=== PATIENT | male | born 1940 | race Caucasian/White ===

== ENCOUNTER 2016-07-16 02:43 | Observation (INO) | payer MEDICARE, BC ==
[2016-07-16] MEDS ORDERED: Morphine INJ* 2 MG/ML 1 ML SYRINGE IV ONE ×2 (03:00→04:54)
[2016-07-16] MEDS ORDERED: NS 0.9% 1000 ML* 1,000 ML IV ONE (03:00)
[2016-07-16] MEDS ORDERED: Ondansetron INJ* 2 MG/ML VIAL IV ONE (03:00)
--- NOTE | 2016-07-16 03:11 | ED ---
Dalia Srivastava Anna, scribed for Bud Trinidad MD on 07/16/16 at 0310 . Abdominal Pain/Male - HPI Summary HPI Summary: Patient is a 75 y/o male coming to [facility] presenting with the sudden onset of constant abdominal pain that began at 0000 this morning. He reports diffuse pain that is most sensitive in the RLQ. The pain is described as severity 3/10 and radiates to his right flank. Pt denies history of appendicitis. He denies nausea. He has not tried any pain medications yet. - History of Current Complaint Stated Complaint: ABD PAIN Hx Obtained From: Patient, Family/Steel [employer] - Accompanied by Onset/Duration: Sudden Onset, Lasting Hours, Still Present Timing: Constant, Lasting Hours Severity Initially: Moderate Severity Currently: Moderate Pain Intensity: 3 Pain Scale Used: 0-10 Numeric Radiates: Yes Radiates to: Flank - right Associated Signs And Symptoms: Negative: Nausea - Allergies/Home Medications Allergies/Adverse Reactions: Allergies Allergy/AdvReac Type Severity Reaction Status Date / Time No Known Allergies Allergy Verified 07/16/16 03:00 Home Medications: Home Medications Dutasteride [Avodart] 0.5 mg PO DAILY 07/16/16 [History Confirmed 07/16/16] Tamsulosin HCl [Flomax] 0.4 mg PO DAILY 07/16/16 [History Confirmed 07/16/16] PMH/Surg Hx/FS Hx/Imm Hx Endocrine/Hematology History: Denies: Hx Diabetes Cardiovascular History: Reports: Hx Angina Denies: Hx Congestive Heart Failure, Hx Hypertension, Hx Pacemaker/ICD Respiratory History: Denies: Hx Asthma, Hx Chronic Obstructive Pulmonary Disease (COPD) History: Reports: Hx Benign Prostatic Hyperplasia, Other Problems/ Disorders - BPH Denies: Hx Renal Disease Musculoskeletal History: Reports: Hx Back Problems Sensory History: Reports: Hx Cataracts - BILAT, Hx Contacts or Glasses Denies: Hx Hearing Aid Opthamlomology History: Reports: Hx Cataracts - BILAT, Hx Contacts or Glasses Psychiatric History: Denies: Hx Panic Disorder - Surgical History Surgery Procedure, Year, and Place: OPEN [facility] 2013. EYE SURGERY 50 YRS AGO Hx Anesthesia Reactions: No - Immunization History Date of Tetanus Vaccine: UNSURE Date of Influenza Vaccine: 2012 Infectious Disease History: Denies: Traveled Outside the [place] in Last 30 Days - Family History Known Family History: Negative: Cardiac Disease - Social History Alcohol Use: Weekly Alcohol Amount: 2-3/WEEK Substance Use Type: Reports: None Smoking Status (MU): Former Smoker Review of Systems Positive: Abdominal Pain. Negative: Nausea Psychological: Normal All Other Systems Reviewed And Are Negative: Yes Physical Exam Triage Information Reviewed: Yes Vital Signs On Initial Exam: Initial Vitals Temp Pulse Resp BP Pulse Ox 99 F 64 16 184/74 96 07/16/16 03:03 07/16/16 03:03 07/16/16 03:03 07/16/16 03:03 07/16/16 03:03 Vital Signs Reviewed: Yes Appearance: Positive: Well-Appearing, Pain Distress - mild discomfort Skin: Positive: Warm Head/Face: Positive: Normal Head/Face Inspection Eyes: Positive: NORTH ENT: Positive: Hearing grossly normal Neck: Positive: Supple Respiratory/Lung Sounds: Positive: Clear to Auscultation, Breath Sounds Present Cardiovascular: Positive: RRR Abdomen Description: Positive: No Organomegaly, Soft, McBurney's Point Tenderness - mild. Negative: CVA Tenderness (R), CVA Tenderness (L), Distended , Guarding Bowel Sounds: Positive: Present Musculoskeletal: Positive: Strength/ROM Intact Neurological: Positive: Alert, Oriented to Person Place, Time Diagnostics - Vital Signs Vital Signs Temp Pulse Resp BP Pulse Ox 07/16/16 03:03 99 F 64 16 184/74 96 - Laboratory Result Diagrams: 07/16/16 03:10 07/16/16 03:10 Lab Statement: Any lab studies that have been ordered have been reviewed, and results considered in the medical decision making process. - CT CT abd/pel CT Interpretation: Positive (See Comments) CT Interpretation Completed By: Radiologist Re-Evaluation - Re-Evaluation First Eval Re-Evaluation Time: 05:49 Comment: Discussed results and plan of care with patient and family. Patient and family are agreeable with plan. Abdominal Pain Fem Course/Dx - Course Assessment/Plan: Patient is a 75 y/o male coming to [facility] presenting with the sudden onset of constant abdominal pain that began at 0000 this morning. He reports diffuse pain that is most sensitive in the RLQ. The pain is described as severity 3/10 and radiates to his right flank. Pt denies history of appendicitis. He denies nausea. He has not tried any pain medications yet. Patient was given Zofran and Morphine in the ED course. Labs reveal BUN/ Creatinine ratio of 23.1 and c-reactive protein of 19.74. CT reveals acute appendicitis. Discussed care of patient with Dr. Guaman (surgeon) at 0550. Agrees to see and admit patient. - Diagnoses Provider Diagnoses: Acute appendicitis - Provider Notifications Discussed Care Of Patient With: Dr. Guaman (surgeon) at 0550. Agrees to see patient. Instructed by Provider To: Admit As Inpatient Discharge - Discharge Plan Condition: Good Disposition: ADMITTED TO [facility] documentation as recorded by the Dalia van Anna accurately reflects the service I personally performed and the decisions made by , Bud Trinidad MD.
[2016-07-16 03:25] LABS: Add Diff/Slide Review? Slide Review Added; Comments Flag Yes; Hematocrit 46 % (42-52); Hemoglobin 15.7 g/dl (14.0-18.0); Mean Corpuscular HGB Conc 34 g/dl (31-36); Mean Corpuscular Hemoglobin 31 pg (27-31); Mean Corpuscular Volume 92 fL (80-94); Mean Platelet Volume 8 um3 (7.4-10.4); Red Blood Count 5.04 10^6/ul (4.0-5.4); Red Cell Distribution Width 13 % (10.5-15); White Blood Count 9.5 10^3/ul (3.5-10.8)
[2016-07-16 03:37] LABS: Albumin 4.2 g/dL (3.2-5.2); BUN/Creatinine Ratio 23.1 (8-20); C Reactive Protein 19.74 mg/L (< 5.00); Calcium 9.1 mg/dL (8.6-10.3); EGFR Non-African American 81.7 (>60); Globulin 2.8 g/dL (2-4); Total Bilirubin 0.4 mg/dL (0.2-1.0)
[2016-07-16] MEDS ORDERED: Iohexol 300* (CONTRAST) 10 ML SDV IV ONE (04:20)
[2016-07-16 05:53] LABS: Urine Bilirubin Negative (Negative); Urine Glucose Negative (Negative); Urine Nitrite Negative (Negative)
--- NOTE | 2016-07-16 06:18 | RAD ---
INDICATION: Right lower quadrant pain COMPARISON: CT abdomen pelvis August 29, 2013 TECHNIQUE: Axial source images were obtained from the hemidiaphragms to the symphysis pubis following administration of oral and intravenous contrast. 100 mL Omnipaque 300 was utilized. Coronal and sagittal reconstructed images were acquired. Lung bases: The lung bases are clear. Liver: The liver is normal in size. There are no masses. There is no ductal dilatation. Gallbladder: Cholecystectomy. Spleen: The spleen is normal in size. There are no masses. Pancreas: There is no focal pancreatic mass or ductal dilatation. Adrenal glands: There is no evidence of adrenal mass. Kidneys: 1.4 cm lower pole right renal cyst 0.4 cm lower pole right renal cyst. 0.4 cm upper pole right renal. No other focal renal findings. Prompt perfusion and excretion. No CT evidence of nephrolithiasis identified on contrast-enhanced imaging Adenopathy: There is no evidence of adenopathy by size criteria. Fluid collections: There are no free or localized fluid collections. Vessels:There are no significant atherosclerotic changes involving the aorta. There is no focal aneurysm. The iliac vessels are normal in caliber. The IVC appears normal. GI tract: There are no acute CT bowel findings. There is no obstruction. The stomach and small bowel appear normal. The appendix is dilated and fluid-filled with an appendicolith and mild periappendiceal inflammatory change. The CT findings are consistent with acute appendicitis. The remainder the large bowel is normal. There are no findings of obstruction or perforation. Pelvic organs: The prostate and seminal vesicles appear normal Bladder: There are no bladder masses. Abdominal and pelvic soft tissues: The extraperitoneal abdominal and pelvic soft tissues appear normal.. Osseous structures: There are no acute osseous findings. Other: None IMPRESSION: CT FINDINGS OF ACUTE APPENDICITIS.
--- NOTE | 2016-07-16 07:25 | HP ---
H&P (Free Text) History and Physical: Surgery H & P Asked by Dr. Trinidad to evaluate a pt with abdominal pain and a CT suggestive of appendicitis. Mr. Cruz is a 75 y.o. male who reports he first noticed "discomfort" in the low abdomen yesterday. The sensation worsened over the next few hours till he realized he "couldn't get comfortable" and he needed to come to the ER. He denies fever, nausea, diarrhea, constipation, or dysuria. He had an episode of chills when he got to the ER. PMHx: denies PSHx: cholecystectomy associated with ruptured duodenum and prolonged hospitalization. Meds: avodart and flomax ROS: BPH SH: neg. Tob., occ EtOH, neg. IVDA PE: general: WDWN male in NAD Vital Signs 07/16/16 07/16/16 07/16/16 03:03 03:26 05:03 Temperature 99 F Pulse Rate 64 Respiratory 16 16 16 Rate Blood Pressure 184/74 (mmHg) O2 Sat by Pulse 96 Oximetry HEENT: alopecia, neg. cervical adenopathy, neg. scleral icterus, dry oral mucosa. lungs: clear to ausc. heart: reg. abd: good BS,soft, tender with fullness in right lower quadrant, slightly higher than McBurney's point. No guarding or rebound. There are a well-healed upper midline and a well-healed supraumbilical scar. ext: neg. cyanosis, edema, easily palp. pedal pulses. Laboratory Last Values WBC 9.5 10^3/ul (3.5-10.8) 07/16/16 03:10 RBC 5.04 10^6/ul (4.0-5.4) 07/16/16 03:10 Hgb 15.7 g/dl (14.0-18.0) 07/16/16 03:10 Hct 46 % (42-52) 07/16/16 03:10 MCV 92 fL (80-94) 07/16/16 03:10 MCH 31 pg (27-31) 07/16/16 03:10 MCHC 34 g/dl (31-36) 07/16/16 03:10 RDW 13 % (10.5-15) 07/16/16 03:10 Plt Count 211 10^3/ul (150-450) 07/16/16 03:10 MPV 8 um3 (7.4-10.4) 07/16/16 03:10 Neut % (Auto) 88.0 % (38-83) H 07/16/16 03:10 Lymph % (Auto) 7.8 % (25-47) L 07/16/16 03:10 [place] % (Auto) 2.7 % (1-9) 07/16/16 03:10 Eos % (Auto) 0.7 % (0-6) 07/16/16 03:10 Baso % (Auto) 0.8 % (0-2) 07/16/16 03:10 Absolute Neuts (auto) 8.4 10^3/ul (1.5-7.7) H 07/16/16 03:10 Absolute Lymphs (auto) 0.7 10^3/ul (1.0-4.8) L 07/16/16 03:10 Absolute Monos (auto) 0.3 10^3/ul (0-0.8) 07/16/16 03:10 Absolute Eos (auto) 0.1 10^3/ul (0-0.6) 07/16/16 03:10 Absolute Basos (auto) 0.1 10^3/ul (0-0.2) 07/16/16 03:10 Absolute Nucleated RBC 0 10^3/ul 07/16/16 03:10 Nucleated RBC % 0 07/16/16 03:10 Sodium 136 mmol/L (133-145) 07/16/16 03:10 Potassium 4.0 mmol/L (3.5-5.0) 07/16/16 03:10 Chloride 102 mmol/L (101-111) 07/16/16 03:10 Carbon Dioxide 26 mmol/L (22-32) 07/16/16 03:10 Anion Gap 8 mmol/L (2-11) 07/16/16 03:10 BUN 21 mg/dL (6-24) 07/16/16 03:10 Creatinine 0.91 mg/dL (0.67-1.17) 07/16/16 03:10 Est GFR ( Amer) 105.0 (>60) 07/16/16 03:10 Est GFR (Non-Af Amer) 81.7 (>60) 07/16/16 03:10 BUN/Creatinine Ratio 23.1 (8-20) H 07/16/16 03:10 Glucose 98 mg/dL (70-100) 07/16/16 03:10 Calcium 9.1 mg/dL (8.6-10.3) 07/16/16 03:10 Total Bilirubin 0.40 mg/dL (0.2-1.0) 07/16/16 03:10 AST 23 U/L (13-39) 07/16/16 03:10 ALT 20 U/L (7-52) 07/16/16 03:10 Alkaline Phosphatase 65 U/L (34-104) 07/16/16 03:10 C-Reactive Protein 19.74 mg/L (< 5.00) H 07/16/16 03:10 Total Protein 7.0 g/dL (6.4-8.9) 07/16/16 03:10 Albumin 4.2 g/dL (3.2-5.2) 07/16/16 03:10 Globulin 2.8 g/dL (2-4) 07/16/16 03:10 Albumin/Globulin Ratio 1.5 (1-3) 07/16/16 03:10 Urine Color Yellow 07/16/16 05:39 Urine Appearance Clear 07/16/16 05:39 Urine pH 7.0 (5-9) 07/16/16 05:39 Ur Specific [place] 1.050 (1.010-1.030) H 07/16/16 05:39 Urine Protein Negative (Negative) 07/16/16 05:39 Urine Ketones 1+ (Negative) H 07/16/16 05:39 Urine Blood Negative (Negative) 07/16/16 05:39 Urine Nitrate Negative (Negative) 07/16/16 05:39 Urine Bilirubin Negative (Negative) 07/16/16 05:39 Urine Urobilinogen Negative (Negative) 07/16/16 05:39 Ur Leukocyte Esterase Negative (Negative) 07/16/16 05:39 Urine Glucose Negative (Negative) 07/16/16 05:39 CT scan show a thickened appendix and a distended stomach. A/P: Probable appendicitis. Will proceed to OR for laparoscopic appendectomy. I have explained to him the nature of surgery, its risks, benefits, and alternatives. He understands and agrees to proceed. Will try to obtain records from previous surgery. El[place]
[2016-07-16] MEDS ORDERED: Bupivacaine 0.25% EPI 200,000* 30 ML SDV ONE (07:42)
[2016-07-16] MEDS ORDERED: fentaNYL* 50 MCG/ML 2 ML VIAL (100 MCG VIAL) ONE (07:56)
[2016-07-16] MEDS ORDERED: KETAMINE HCL* 50 MG/ML 10 ML VIAL ONE (07:56)
[2016-07-16] MEDS ORDERED: Lidocaine 1% INJ* 10 MG/ML 30 ML SDV ONE (07:58)
[2016-07-16] MEDS ORDERED: Piperac/Tazob 3.375 gm in NS* 3.375 GM/100 ML BAG IVPB ONE (08:14)
[2016-07-16] MEDS ORDERED: Succinylcholine* 20 MG/ML 10 ML VIAL ONE (08:20)
[2016-07-16] MEDS ORDERED: Dexamethasone IV* 4 MG/ML 1 ML (4 MG) ONE (08:20)
[2016-07-16] MEDS ORDERED: Neostigmine Methylsulfate* 2 MG/2 ML SYRINGE ONE (08:20)
[2016-07-16] MEDS ORDERED: Glycopyrrolate IV* 0.2 MG/ML 1 ML VIAL ONE (08:20)
[2016-07-16] MEDS ORDERED: Rocuronium* 10 MG/ML VIAL ONE (08:20)
[2016-07-16] MEDS ORDERED: Famotidine IV* 10 MG/ML 2 ML (20 mg) ONE (08:20)
[2016-07-16] MEDS ORDERED: Propofol* 10 MG/ML 20 ML BTL IV PUSH ONE (08:20)
[2016-07-16] MEDS ORDERED: fentaNYL* 50 MCG/ML 2 ML VIAL (100 MCG VIAL) IV PRN (09:12)
[2016-07-16] MEDS ORDERED: HYDROmorphone* 1 MG/ML 1 ML SYR IV PRN (09:12)
[2016-07-16] MEDS ORDERED: DiMENhydriNATE IV* 50 MG/ML VIAL IV PUSH PRN (09:12)
--- NOTE | 2016-07-16 09:36 | SURGPN ---
Brief Operative Note - Surgery Procedures: Procedures FLEXIBLE SIGMOIDOSCOPY (08/23/99) SKIN SUTURE NEC (01/23/97) 07/16/16 Op Note Pre-op dx: appendicitis Post-op dx: same Procedure: laparoscopic appendectomy Surgeon: Deniz Asst: none Anesth: general EBL: 10 cc Complications: none Abx: given pre-op SCDs on during surgery Pt. tolerated procedure well and was transferred to in a stable condition [facility]
[2016-07-16] MEDS ORDERED: oxyCODONE/Acetamin 5/325 MG* TAB PO PRN (09:37)
[2016-07-16] MEDS ORDERED: Ondansetron INJ* 2 MG/ML VIAL IV PRN (09:38)
[2016-07-16] MEDS: D5W 1/2 NS KCl 20 Meq 1000 ML* 1,000 ML IV SCH (10:29)
[2016-07-16] MEDS: oxyCODONE/Acetamin 5/325 MG* TAB PO PRN ×2 (13:23→22:28)
[2016-07-16] MEDS: Piperac/Tazob 3.375 gm in NS* 3.375 GM/100 ML BAG IVPB SCH ×2 (13:56→22:28)
[2016-07-17] MEDS: D5W 1/2 NS KCl 20 Meq 1000 ML* 1,000 ML IV SCH (02:12)
--- NOTE | 2016-07-17 02:54 | OP ---
DATE OF OPERATION: 07/16/16 - ROOM #332 DATE OF : 44 SURGEON: Winsome Guaman MD SPRING WINDER: There was no clinical data assistant for this case. ANESTHESIOLOGIST: Eduardo Tam MD ANESTHESIA: General PRE-OP DIAGNOSIS: Appendicitis. POST-OP DIAGNOSIS: Appendicitis. OPERATIVE PROCEDURE: Laparoscopic appendectomy. INDICATIONS: Mr. Griggs is a 75-year-old male who presented to the emergency room with signs and symptoms consistent with appendicitis and a CAT scan confirmed appendicitis. He was therefore prepared for surgery and left the operating room. DESCRIPTION OF PROCEDURE: He was placed on the OR table in the supine position and given general anesthesia. The abdomen was then prepped and draped in the usual sterile fashion. After infiltrating the local anesthetic, an incision was made in the supraumbilical area over previous scar from an attempt at laparoscopic cholecystectomy. Subcutaneous tissue was divided bluntly and the fascia was grasped and incised and a 0 Biosyn stitch was placed on either side of the fascial incision. A trocar was inserted into the abdomen and the abdomen was insufflated under direct visualization. A suprapubic and a left flank port were placed after infiltrating with local anesthetic. The cecum was rotated medially and this exposed an acutely inflamed appendix with fibrin and purulent exudate on it and some adhesions to the lateral side wall. These adhesions were taken down using electrocautery and sharp dissection and once the appendix was mobilized enough to expose the base, the base was cleared and an EndoGIA stapler was fired across the base of the appendix. The second fire was fired across the mesoappendix. The appendix was placed in an EndoCatch bag and withdrawn from the abdomen through the supraumbilical port and handed off as as specimen. A small amount of blood in the right lower quadrant was absorbed with a sponge and the sponge was removed. A brief inspection of the rest of the abdomen revealed dense adhesions in the right upper quadrant but no obvious pathology to the small and large intestine are visualized. Visualization through the whole abdomen was limited by adipose. Ports were then withdrawn under direct visualization and the previously placed 0 Biosyn was used to close the fascia of the supraumbilical port site. 4-0 Biosyn was used to close the skin of all incisions. Steri-Strips were applied. All sponge and instrument counts were correct. The patient tolerated the procedure well and was transferred to recovery in a stable condition. CC: [facility]; Dr. Claudio Dobbs.* [id number]/[facility] #: [id number] ANAMARIA
[2016-07-17] MEDS: Piperac/Tazob 3.375 gm in NS* 3.375 GM/100 ML BAG IVPB SCH (05:36)
[2016-07-17 08:07] VITALS: BP 111/50
--- NOTE | 2016-07-17 10:11 | PN ---
Progress Note - Progress Note SOAP: Subjective: Doing very well, no complaints. Tolerating regular diet, passing flatus. Objective: Awake and alert, in NAD. VSS, afebrile Abdomen soft, NT, ND Incisions C/D/I Ext no edema Assessment: A 75 y/o male, s/p laparoscopic appendectomy, doing well. Plan: Plan on d/c to home on Abx for next 3 days. F/U with office later this week.
== END 2016-07-17 11:45 | disposition home or self-care (01) ==
LOC: ED 02:43 → OR 08:33 → UNDOADMIN 10:00 → SSU 10:00 → UNDOADMIN 10:26 → SSU 10:26
PROVIDERS: ADMIT Surgery; ATTEND Surgery
PROC: 0DTJ4ZZ Resection of Appendix, Percutaneous Endoscopic Approach (ICD-10-PCS; principal; 2016-07-16 08:00)
DX: K35.80 Unspecified acute appendicitis (principal)
CPT/HCPCS: 36415; 74177; 80053; 81003; 85025; 86140; 88304; 96374; 96375; 96376; 99284; A9270-GY; C1776; G0378; J0330; J1100; J2001; J2270; J2405; J2543; J2704; J3010; Q9967

== ENCOUNTER 2020-11-01 14:18 | Observation (INO) ==
[2020-11-01 16:26] LABS: ABS Lymphocytes 1.2 10^3/ul (1.0-4.8); ABS Monocytes 0.7 10^3/ul (0-0.8); ABS Neutrophils 3.6 10^3/ul (1.5-7.7); Eosinophil % 0.1 %; Hematocrit 42 % (42-52); Hemoglobin 14.1 g/dL (14.0-18.0); Lymphocyte % 21.4 %; Mean Corpuscular HGB Conc 34 g/dL (31-36); Mean Corpuscular Hemoglobin 34 pg (27-31); Mean Corpuscular Volume 100 fL (80-94); Mean Platelet Volume 7.6 fL (7.4-10.4); Platelet Count 200 10^3/uL (150-450); Red Blood Count 4.17 10^6 /uL (4.18-5.48); Red Cell Distribution Width 14 % (10-15); White Blood Count 5.5 10^3/uL (3.5-10.8)
[2020-11-01 16:40] LABS: INR 0.96 (0.86-1.15)
[2020-11-01 17:46] LABS: Albumin 4.3 g/dL (3.2-5.2); Albumin/Globulin Ratio 1.5 (1-3); Calcium 9.7 mg/dL (8.6-10.3); EGFR Non-African American 76.9 (>60); Globulin 2.9 g/dL (2-4); Potassium 4.3 mmol/L (3.5-5.0); Total Bilirubin 0.5 mg/dL (0.2-1.0); Total Protein 7.2 g/dL (6.4-8.9)
[2020-11-01] MEDS ORDERED: Lactated Ringers 1000 ml BAG 1,000 ML IV ONE (20:40)
[2020-11-01] MEDS ORDERED: fentaNYL 100 mcg/2 ml 50 MCG/ML VIAL IV SLOW PU ONE (20:40)
[2020-11-01] MEDS ORDERED: Famotidine IV 10 MG/ML 2 ml VIAL (20 mg) IV SLOW PU ONE (20:40)
[2020-11-01] MEDS ORDERED: Iohexol 350 (CONTRAST) 500 ML MDV IV ONE (21:01)
[2020-11-01 21:35] LABS: Venous Bicarbonate HCO3 26.7 mmol/L (24-28)
[2020-11-02] MEDS ORDERED: fentaNYL 100 mcg/2 ml 50 MCG/ML VIAL IV SLOW PU ONE (00:30)
[2020-11-02] MEDS ORDERED: Ondansetron 4 mg VIAL 2 MG/ML 2 ml VIAL IV PRN (00:48)
[2020-11-02] MEDS ORDERED: fentaNYL 100 mcg/2 ml 50 MCG/ML VIAL IV SLOW PU PRN (00:52)
[2020-11-02] MEDS ORDERED: Labetalol IV 5 MG/ML 20 ml VIAL IV PUSH ONE (01:34)
[2020-11-02 08:04] LABS: HDL Cholesterol 70.9 mg/dL
[2020-11-02 08:14] LABS: Troponin I 0.01 ng/mL (<0.03)
[2020-11-02] MEDS ORDERED: Al Hydrox/Mg Hydrox/Simet LIQ 30 ML UDC PO ONE (08:41)
[2020-11-02] MEDS ORDERED: CMCS:Dutasteride 0.5 mg CAP (NF) PO SCH (09:00)
[2020-11-02 09:13] VITALS: BP 170/67
== END 2020-11-02 16:05 | disposition home or self-care (01) ==
LOC: ED 14:18 → MEDTELE 14:18
PROVIDERS: ADMIT Internal Medicine; ATTEND Student in an Organized Health Care Education/Training Program